=== PATIENT | male | born 1980 | race Caucasian/White ===

== ENCOUNTER 2017-06-23 02:52 | Emergency (ER) | payer BC, OTHER ==
[~2017-06-23] VITALS: Ht 180.3 cm; Wt 94.6 kg
[2017-06-23 02:59] VITALS: Ht 180.3 cm; Wt 94.6 kg
[2017-06-23] MEDS ORDERED: LIDOCAINE HCL 2% VISC SOLN 20 ML UDC PO STA (03:17)
[2017-06-23] MEDS ORDERED: ALUMINUM/MAGNESIUM SUSP 30 ML UDC PO STA (03:17)
[2017-06-23 03:53] LABS: BASO % 0.1 %; BASO ABS # 0.01 K/uL (0-0.2); COMPLETE YES; HEMATOCRIT 45.2 % (42-52); IG% 0.3 %; LYMPH % 13.4 %; LYMPH ABS # 1.26 K/uL (1.2-3.4); MEAN CELL VOLUME 82.9 fL (80-100); MEAN PLATELET VOLUME 11.7 fL (7.4-10.4); MONO % 6.2 %; PLATELET COUNT 210 K/uL (130-400); RED BLOOD COUNT 5.45 M/uL (4.7-6.1); WHITE BLOOD COUNT 9.41 K/uL (4.8-10.8)
[2017-06-23 04:41] LABS: ALKALINE PHOSPHATASE 89 U/L (45-117); ALT/SGPT 40 U/L (12-78); AST/SGOT 23 U/L (15-37); BLOOD UREA NITROGEN 13 mg/dl (7-18); BUN/CREATININE RATIO 13.1 (10-20); CALCIUM 8.8 mg/dl (8.5-10.1); CARBON DIOXIDE 25 mmol/L (21-32); CHLORIDE 107 mmol/L (98-107); GLUCOSE 99 mg/dl (70-99); SODIUM 140 mmol/L (136-145)
--- NOTE | 2017-06-23 07:08 | DIAGNOSTIC IMAGING REPORT ---
ULTRASOUND RIGHT UPPER QUADRANT ABDOMEN CLINICAL HISTORY: Right upper quadrant abdominal pain. COMPARISON STUDY: No priors. TECHNIQUE: Real-time, grayscale, and color flow sonography of the right upper quadrant of the abdomen was performed. Images are reviewed in the transverse and longitudinal planes. FINDINGS: Liver: The liver is normal in size and heterogeneous and echotexture. There is no intrahepatic biliary ductal dilatation. The main portal vein is patent. Gallbladder: The gallbladder is mildly distended. There are gallstones and biliary sludge. The gallbladder wall appears thickened and edematous, measuring up to 5 mm. No pericholecystic fluid is seen. A sonographic Jade's sign is reportedly present. The common bile duct measures up to 0.5 cm in diameter. Pancreas: Not well visualized due to overlying bowel gas. Right kidney: Survey images of the right kidney demonstrate normal size and echotexture. There is no hydronephrosis. Ascites: None. IMPRESSION: 1. Cholelithiasis and biliary sludge with sonographic evidence of acute cholecystitis. Hepatobiliary scan could be considered for confirmation if clinically warranted. Surgical consultation is advised. 2. No intra or extrahepatic biliary ductal dilatation is identified. Electronically signed by: Jevon Zapata M.D. 06/23/2017 7:07 AM Dictated Date/Time: 06/23/2017 7:05 AM
--- NOTE | 2017-06-23 07:30 | DIAGNOSTIC IMAGING REPORT ---
CHEST ONE VIEW PORTABLE HISTORY: Atypical CHEST PAIN COMPARISON: None. FINDINGS: The lungs are clear. Cardiac silhouette is normal in size. No pleural effusions. No pneumothorax. IMPRESSION: No acute process. Electronically signed by: Israel Mack M.D. 06/23/2017 7:28 AM Dictated Date/Time: 06/23/2017 7:27 AM
--- NOTE | 2017-06-23 08:05 | Surgery Consultation ---
Consultation Date of Consultation: Jun 23, 2017. Attending Physician: History of Present Illness The patient is a 36 year old male who presents to the Emergency Room with complaints of intermittent epigastric right upper quadrant pain for the past 3 days described as aching, ranging in severity 7 out of 10. Patient states after eating pizza on Tuesday the pain developed and resolved after a few hours. This happened again last night and tonight. Patient states he eats a lot of fatty foods. No history of similar symptoms in the past. Patient tried Pepto- Bismol with no relief of symptoms. Patient denies chest pain, dyspnea, fever, chills, back pain, urinary symptoms, black or blood in the stool. No family history of heart disease. No prior heart disease himself. I saw pt at ER, pt is still have RUQ pain, some nausea, no vomiting, Past Medical/Surgical History Medical Problems: (1) Biliary colic Status: Acute Social History Smoking Status: Never Smoker Smokeless Tobacco Use: No Alcohol Use: occasionally Drug Use: none Allergies Coded Allergies: Erythromycin (Unverified Allergy, Severe, 06/23/17) PT HOSPITALIZED AFTER LAST EXPOSURE Home Medications No Active Prescriptions or Reported Meds Review of Systems Constitutional: No fever, No chills, No sweats, No weight loss, No weakness, No fatigue, No problem reported Eyes: No worsening of vision, No eye pain, No redness, No discharge, No diplopia, No problem reported ENT: No hearing loss, No unusual epistaxis, No nasal symptoms, No sore throat, No tinnitus, No dental problems, No trouble swallowing, No problem reported Respiratory: No cough, No sputum, No wheezing, No shortness of breath, No dyspnea on exertion, No dyspnea at rest, No hemoptysis, No problem reported Cardiovascular: No chest pain, No orthopnea, No PND, No edema, No claudication , No palpitations, No problem reported Abdomen: + pain, + nausea Musculoskeletal: No joint pain, No muscle pain, No swelling, No calf pain, No problem reported Genitourinary - Male: No hematuria, No dysuria, No urinary frequency, No urinary urgency, No urinary hesitancy, No urinary retention, No urinary incontinence, No penile discharge, No lesions, No impotence, No problem reported Neurologic: No memory loss, No paralysis, No weakness, No numbness/tingling, No vertigo, No balance problems, No problem reported Psychiatric: No depression symptoms, No anhedonism, No anxiety, No insomnia, No substance abuse, No problem reported Endocrine: No fatigue, No excessive thirst, No excessive urination, No problem reported Hematologic / Lymphatic: No abnormal bleeding/bruising, No clotting problems, No swollen lymph nodes, No night sweats, No problem reported Physical Exam Date Time Temp Pulse Resp B/P (MAP) Pulse Ox O2 Delivery O2 Flow Rate FiO2 06/23/17 06:46 72 20 138/75 97 Room Air 06/23/17 05:05 74 20 139/91 94 Room Air 06/23/17 03:29 Room Air 06/23/17 02:59 37.0 84 18 155/103 96 Room Air General Appearance: WD/WN, + mild distress Head: normocephalic Eyes: normal inspection ENT: normal ENT inspection Neck: supple, no JVD Respiratory/Chest: chest non-tender, lungs clear Cardiovascular: regular rate, rhythm, no edema, no gallop, no JVD, no murmur Abdomen/GI: soft, no organomegaly, no pulsatile mass, + tenderness (AT RUQ) Extremities/Musculoskelatal: normal inspection, no calf tenderness, normal capillary refill Neurologic/Psych: no motor/sensory deficits, alert, normal mood/affect Skin: normal color, warm/dry, no rash Laboratory Results Last 24 Hours Test 06/23/17 03:40 White Blood Count 9.41 K/uL Red Blood Count 5.45 M/uL Hemoglobin 15.8 g/dL Hematocrit 45.2 % Mean Corpuscular Volume 82.9 fL Mean Corpuscular Hemoglobin 29.0 pg Mean Corpuscular Hemoglobin Concent 35.0 g/dl Platelet Count 210 K/uL Mean Platelet Volume 11.7 fL Neutrophils (%) (Auto) 79.0 % Lymphocytes (%) (Auto) 13.4 % Monocytes (%) (Auto) 6.2 % Eosinophils (%) (Auto) 1.0 % Basophils (%) (Auto) 0.1 % Neutrophils # (Auto) 7.44 K/uL Lymphocytes # (Auto) 1.26 K/uL Monocytes # (Auto) 0.58 K/uL Eosinophils # (Auto) 0.09 K/uL Basophils # (Auto) 0.01 K/uL RDW Standard Deviation 40.3 fL RDW Coefficient of Variation 13.5 % Immature Granulocyte % (Auto) 0.3 % Immature Granulocyte # (Auto) 0.03 K/uL Sodium Level 140 mmol/L Potassium Level 4.0 mmol/L Chloride Level 107 mmol/L Carbon Dioxide Level 25 mmol/L Anion Gap 8.0 mmol/L Blood Urea Nitrogen 13 mg/dl Creatinine 1.00 mg/dl Est Creatinine Clear Calc Drug Dose 118.7 ml/min Estimated GFR () 110.9 Estimated GFR (Non- 95.7 BUN/Creatinine Ratio 13.1 Random Glucose 99 mg/dl Calcium Level 8.8 mg/dl Total Bilirubin 1.2 mg/dl Direct Bilirubin mg/dl Aspartate Amino Transf (AST/SGOT) 23 U/L Alanine Aminotransferase (ALT/SGPT) 40 U/L Alkaline Phosphatase 89 U/L Troponin I < 0.015 ng/ml Total Protein 7.8 gm/dl Albumin 4.0 gm/dl Lipase 147 U/L Chemistry Specimen Hemolysis Assessment & Plan U/S-IMPRESSION: 1. Cholelithiasis and biliary sludge with sonographic evidence of acute cholecystitis. Hepatobiliary scan could be considered for confirmation if clinically warranted. Surgical consultation is advised. 2. No intra or extrahepatic biliary ductal dilatation is identified. Assement: pt is a 36 zander old male who presents to ER for 4 days RUQ pain, U/S cholelithiasis. acute cholecystitis IMP: cholelithiasis. acute cholecystitis Plan: I recommend to do laparoscopic cholecystectomy, possible open or cholangiogram, D/W benefits, risks and alternatives of the procedure, the risks- infection, bleeding, injury CBD, bowel, may need ERCP, incisional hernia, pt understood, he agrees with the plan, I answered all questions,
[2017-06-23 08:15] VITALS: O2SAT 97
[2017-06-23] MEDS ORDERED: GLYCOPYRROLATE INJ 0.2 MG/ML VIAL ONE ×2 (08:22→09:42)
[2017-06-23] MEDS ORDERED: LIDOCAINE HCL 2% 2 ML VIAL (20MG/ML) ONE (08:22)
[2017-06-23] MEDS ORDERED: ONDANSETRON INJ 2 MG/ML 2 ML VIAL ONE (08:22)
[2017-06-23] MEDS ORDERED: DEXAMETHASONE SOD INJ 4 MG/ML VIAL ONE (08:22)
[2017-06-23] MEDS ORDERED: PROPOFOL IV EMULSION 10 MG/ML 20 ML VIAL IV ONE (08:22)
[2017-06-23] MEDS ORDERED: NEOSTIGMINE METHYLSULFATE 5 MG/5 ML SYR ONE (08:22)
[2017-06-23] MEDS ORDERED: FENTANYL CITRATE INJ 50 MCG/1 ML 2 ML VIAL ONE (08:23)
[2017-06-23] MEDS ORDERED: MIDAZOLAM HCL 1 MG/ML 2ML VIAL ONE (08:23)
--- NOTE | 2017-06-23 08:27 | History & Physical Bridge Note ---
H&P Re-Evaluation Bridge Note: I have examined the patient, reviewed the History & Physical and in the interval since the performance of the History & Physical I have noted the following changes of clinical significance: No changes noted
[2017-06-23] MEDS ORDERED: CEFAZOLIN IV 2,000 MG/60 ML D5W IV ONE (08:29)
[2017-06-23] MEDS ORDERED: FENTANYL CITRATE INJ 50 MCG/1 ML 2 ML VIAL IV PRN (08:30)
[2017-06-23] MEDS ORDERED: NALOXONE HCL 0.4 MG/1 ML VIAL/CARP IV PRN (08:30)
[2017-06-23] MEDS ORDERED: ONDANSETRON INJ 2 MG/ML 2 ML VIAL IV PRN ×2 (08:30→10:45)
[2017-06-23] MEDS ORDERED: LABETALOL HCL IV 5 MG/ML 20ML IV PRN (08:30)
[2017-06-23] MEDS ORDERED: FLUMAZENIL 0.1 MG/1 ML 10 ML VIAL IV PRN (08:30)
[2017-06-23] MEDS ORDERED: EpHEDrine SULFATE INJ 50 MG/ML AMP IV PRN (08:30)
[2017-06-23] MEDS ORDERED: PHENYLEPHRINE 100MCG/ML 5ML SYR IV PRN (08:30)
[2017-06-23] MEDS ORDERED: MEPERIDINE HCL 25 MG/ML CARP IV PRN (08:30)
[2017-06-23] MEDS ORDERED: HYDROmorphone INJ 2 MG/ML SYR/VIAL IV PRN (08:30)
[2017-06-23] MEDS ORDERED: ATROPINE SULFATE 0.1 MG/ML 5ML SYR IV PRN (08:30)
[2017-06-23] MEDS ORDERED: HYDROmorphone INJ 2 MG/ML SYR/VIAL ONE (08:35)
[2017-06-23] MEDS ORDERED: SODIUM CHLORIDE 0.9% INJ 10 ML VIAL ONE (08:35)
[2017-06-23] MEDS ORDERED: LIDOCAINE HCL 1% 20 ML VIAL ONE (08:44)
[2017-06-23] MEDS ORDERED: BACITRACIN OINT 15 GM TUBE ONE (08:45)
[2017-06-23] MEDS ORDERED: BUPIVACAINE 0.5 % 5 MG/1 ML MPF 30ML VIAL ONE (08:45)
[2017-06-23] MEDS ORDERED: LARYING-O-JET KIT (LTA) ONE ×2 (09:42)
[2017-06-23] MEDS ORDERED: KETOROLAC TROMETHAMINE 30 MG/ML VIAL ONE (10:19)
[2017-06-23] MEDS ORDERED: ROCURONIUM BROMIDE 10 MG/ML 5 ML VIAL IV ONE (10:20)
[2017-06-23] MEDS ORDERED: D5W AND 1/2NSS + 20MEQ KCL 1,000 ML IV SCH (10:33)
--- NOTE | 2017-06-23 10:33 | [facility] Post Operative Brief Note ---
Immediate Operative Summary Operative Date Jun 23, 2017. Pre-Operative Diagnosis Cholelithiasis, acute cholecystitis Post-Operative Diagnosis Cholelithiasis, acute cholecystitis Procedure(s) Performed Laparoscopic Cholecystectomy Surgeon Dr. Perdomo Cigarette Stamper Surgeon(s) surgical dressing maker Estimated Blood Loss 10 cc Findings acute cholecystitis Fluids (cc crystalloids) 1400ml Specimens A: gallbladder and contents Drains none Anesthesia general Complication(s) None Disposition Recovery Room / PACU
--- NOTE | 2017-06-23 10:37 | Discharge Instructions ---
Discharge Instructions Date of Service Jun 23, 2017. Visit Reason for Visit: Severe Stomach Pain Discharge Discharge Diagnosis / Problem: S/P laparoscopic cholecystectomy Discharge Goals Goal(s): Decrease discomfort, Improve function Activity Recommendations Activity Limitations: per Instructions/Follow-up section Lifting Limitations: no more than 25 pounds Exercise/Sports Limitations: rest today May Resume Sexual Activity: when tolerated Shower/Bathe: may shower/bathe in 3 days Driving or Machine Use: resume 3 days after discharge Anesthesia . Post Anesthesia Instructions: If you have had General Anesthesia or IV Sedation: * Do not drive today. * Resume driving when surgeon permits. * Do not make important decisions or sign legal documents today. * Call surgeon for: 1. Temperature elevations greater than 101 degrees F. 2. Uncontrollable pain. 3. Excessive bleeding. 4. Persistent nausea and vomiting. 5. Medication intolerance (nausea, vomiting or rash). * For nausea and vomiting use only clear liquids such as: tea, soda, bouillon until nausea subsides, then gradually increase diet as tolerated. * If you have any concerns or questions, call your surgeon's office. If physician is unavailable and it is an emergency, call 911 or go to the nearest emergency room. . Instructions / Follow-Up Instructions / Follow-Up keep the dressing on for 4 days, he can take a shower on , no driving while taking pain medicine, follow up 1 week, Diet Recommendations Recommended Home Diet: resume previous diet Procedures Procedures Performed: Laparoscopic Cholecystectomy Pending Studies Studies pending at discharge: no Work Instructions Return To Work: 2 days Medical Emergencies . Who to Call and When: Medical Emergencies: If at any time you feel your situation is an emergency, please call 911 immediately. . Non-Emergent Contact Non-Emergency issues call your: Surgeon Call Non-Emergent contact if: you have a fever, temperature is above 100.5, your pain is not controlled, your pain is worsening, wound has increased drainage, wound has increased redness . . "Provider Documentation" section prepared by Vy Perdomo. . [place] Drug Monitoring Program Search Results: no issues identified
[2017-06-23] MEDS ORDERED: OXYC-57 PO (10:39)
[2017-06-23] MEDS ORDERED: OXYCODONE/ACETAMINOPHEN 5-325 TAB PO PRN (10:45)
[2017-06-23] MEDS ORDERED: HYDROmorphone INJ 1 MG/ML SYR IV PRN (10:45)
[2017-06-23] MEDS ORDERED: ACETAMINOPHEN 325 MG TAB PO PRN (10:45)
--- NOTE | 2017-06-23 11:23 | OPERATIVE REPORT ---
DATE OF OPERATION: 06/23/2017 PREOPERATIVE DIAGNOSIS: Acute cholecystitis, cholelithiasis. POSTOPERATIVE DIAGNOSIS: Same. PROCEDURE: Laparoscopic cholecystectomy. SURGEON: Dr. Vy Perdomo. ANESTHESIA: General. ESTIMATED BLOOD LOSS: About 10 mL. IV FLUIDS: 1400 mL. FINDINGS: Acute cholecystitis. COMPLICATIONS: None. INDICATIONS FOR THE PROCEDURE: This is a 36-year-old gentleman who presented to the ED with right upper quadrant pain. The patient had ultrasound, diagnosis acute cholecystitis with cholelithiasis. The patient will be required to do laparoscopic cholecystectomy, possible open, possible cholangiogram. I did talk to the patient about the benefit and risk, alternate procedure. I indicated the risks may include but not limited such as bleeding, infection, injury to common bile duct, injury to bowel, may need ERCP, incisional hernia. The patient understands. He signed informed consent and I answered all questions. DETAILS OF PROCEDURE: We brought the patient to the OR, put the patient in the supine position. The patient received SCD on bilateral legs to prevent DVT. Also, patient received 2 grams Ancef IV for prophylactic antibiotic. The patient received general anesthesia without difficulty. The abdomen was prepped and draped in routine sterile fashion. After a timeout, I injected local anesthesia by using 1% lidocaine mixed with 0.5% Marcaine just above the umbilical. Then I made a small incision just above umbilical, opened fascia and opened peritoneum under direct vision. I put a Jamila trocar in, connected to CO2 to create pneumoperitoneum. Flow rate is 6 liter per minute. Pressure not more than 14 mmHg. Once we got a nice pneumoperitoneum, we put a 10 mm camera in looked around the abdomen showing no more findings on the stomach, small bowel, large bowel, liver; however, there was some omentum covering the gallbladder. The gallbladder showed significant gallbladder wall thickening with edema and showed acute cholecystitis. Then, we put another 3.5 mm trocar on the right upper quadrant. Once all trocars in we put grasper in to hold the gallbladder on the base of the gallbladder, put direction to the diaphragm and then I put another grasper in to hold the pouch the gallbladder, put latter to expose the triangle of Calot. The cystic duct was identified and mobilized. I put two 5 mm metal clips on the proximal cystic duct, one on the distal cystic duct then I used scissor transection the cystic duct. Cystic artery was identified and mobilized. I put two 5 mm metal clips on the proximal cystic artery, 1 on the distal cystic artery. Then I used the scissor transecting cystic artery. We checked, no active bleeding, no bile leak. Then I used Bovie to take down the gallbladder from the liver bed without difficulty. Then we removed the gallbladder through the catch bag. Then we reinserted Jamila trocar in, connected to CO2 to create pneumoperitoneum, again looked around the abdomen shows no active bleeding and no bile leak from the liver bed. Then we removed all trocars under direct vision. No active bleeding from trocar sites and no bowel injuries in the abdomen. Then the pneumoperitoneum was released. Then I used a #1 Vicryl closed the umbilical incision, fascial layer by using figure of eight x2, closed subcutaneous layer by using 2-0 Vicryl, closed skin by using 4-0 Vicryl continuous running. Another 3.5 mm trocar site closed skin by using 4-0 Vicryl only. Then, we put the dressing on. The patient tolerated the procedure well. All the instrument, needle and sponge count correct x2 at the end of the case. After the procedure, the patient transferred to recovery room in stable condition. The specimen sent to pathology. I attest to the content of the Intraoperative Record and any orders documented therein. Any exceptions are noted below. TIESHA
--- NOTE | 2017-06-23 11:27 | Anesthesiology Progress Note ---
Anesthesia Post Op Note Date & Time Jun 23, 2017 at 11:27 Vital Signs Pain Intensity: 0 Vital Signs Past 12 Hours Date Time Temp Pulse Resp B/P (MAP) Pulse Ox O2 Delivery O2 Flow Rate FiO2 06/23/17 11:16 87 22 06/23/17 11:16 88 22 97 06/23/17 11:15 139/79 06/23/17 11:13 140/81 06/23/17 11:11 86 19 92 06/23/17 11:11 85 19 06/23/17 11:10 169/99 06/23/17 11:06 74 18 92 06/23/17 11:06 73 18 06/23/17 11:05 132/80 06/23/17 11:01 73 14 06/23/17 11:01 72 14 93 06/23/17 11:00 153/87 06/23/17 10:56 62 13 06/23/17 10:56 62 13 97 06/23/17 10:55 153/87 06/23/17 10:51 67 13 100 06/23/17 10:51 66 13 06/23/17 10:50 139/79 06/23/17 10:46 67 14 99 06/23/17 10:46 67 14 06/23/17 10:45 133/83 06/23/17 10:41 79 16 06/23/17 10:41 81 16 99 06/23/17 10:40 148/80 06/23/17 10:36 80 06/23/17 10:36 36.3 60 14 141/82 99 Oxymask 10 06/23/17 10:36 80 141/82 100 06/23/17 08:15 37.0 72 20 138/75 97 06/23/17 06:46 72 20 138/75 97 Room Air 06/23/17 05:05 74 20 139/91 94 Room Air 06/23/17 03:29 Room Air 06/23/17 02:59 37.0 84 18 155/103 96 Room Air Notes Mental Status: alert / awake / arousable, participated in evaluation Pt Amnestic to Procedure: Yes Nausea / Vomiting: adequately controlled, improving with treatment Pain: adequately controlled Airway Patency, RR, SpO2: stable & adequate BP & HR: stable & adequate Hydration State: stable & adequate Anesthetic Complications: no major complications apparent
[2017-06-23 11:40] VITALS: BP 151/72; PULSE 96; TEMP 36.6; O2SAT 100
[2017-06-23 12:10] VITALS: BP 134/70; PULSE 67; O2SAT 100
[2017-06-23 12:45] VITALS: BP 134/83; PULSE 81; O2SAT 98
[2017-06-23 13:32] VITALS: BP 121/73; PULSE 94; O2SAT 99
--- NOTE | 2017-06-24 03:19 | EMERGENCY ROOM VISIT NOTE ---
History First contact with patient: 03:09 Chief Complaint: ABDOMINAL PAIN Stated Complaint: SEVERE STOMACH PAIN Nursing Triage Summary: off and on cramping pain in stomach over last few nights. N/V/D. tried Pepto around 2300 with no relief History of Present Illness The patient is a 36 year old male who presents to the Emergency Room with complaints of intermittent epigastric right upper quadrant pain for the past 3 days described as aching, ranging in severity 7 out of 10. Patient states after eating pizza on Tuesday the pain developed and resolved after a few hours. This happened again last night and tonight. Patient states he eats a lot of fatty foods. No history of similar symptoms in the past. Patient tried Pepto- Bismol with no relief of symptoms. Patient denies chest pain, dyspnea, fever, chills, back pain, urinary symptoms, black or blood in the stool. No family history of heart disease. No prior heart disease himself. Review of Systems See HPI for pertinent positives & negatives. A total of 10 systems reviewed and were otherwise negative. Past Medical/Surgical History Back surgery Social History Smoking Status: Never Smoker Alcohol Use: occasionally Drug Use: none Marital Status: Housing Status: lives with family Occupation Status: employed Current/Historical Medications Scheduled PRN Oxycodone/Acetaminophen 5MG/325MG (Percocet 5MG/325MG), 1 TABLET PO Q6H PRN for Pain Allergies Coded Allergies: Erythromycin (Unverified Allergy, Severe, 06/23/17) PT HOSPITALIZED AFTER LAST EXPOSURE Physical Exam Vital Signs Date Time Temp Pulse Resp B/P (MAP) Pulse Ox O2 Delivery O2 Flow Rate FiO2 06/23/17 13:32 94 16 121/73 99 Room Air 06/23/17 12:45 81 20 134/83 98 Room Air 06/23/17 12:10 67 16 134/70 100 Nasal Cannula 1 06/23/17 11:40 36.6 96 18 151/72 100 Nasal Cannula 2 06/23/17 11:32 36.1 06/23/17 11:26 72 21 06/23/17 11:26 71 21 98 06/23/17 11:25 130/75 06/23/17 11:22 91 15 92 06/23/17 11:22 88 15 06/23/17 11:20 130/75 06/23/17 11:17 83 18 06/23/17 11:17 84 18 95 06/23/17 11:16 87 22 06/23/17 11:16 88 22 97 06/23/17 11:15 139/79 06/23/17 11:13 140/81 06/23/17 11:11 86 19 92 06/23/17 11:11 85 19 06/23/17 11:10 169/99 06/23/17 11:06 74 18 92 06/23/17 11:06 73 18 06/23/17 11:05 132/80 06/23/17 11:01 73 14 06/23/17 11:01 72 14 93 06/23/17 11:00 153/87 06/23/17 10:56 62 13 06/23/17 10:56 62 13 97 06/23/17 10:55 153/87 06/23/17 10:51 67 13 100 06/23/17 10:51 66 13 06/23/17 10:50 139/79 06/23/17 10:46 67 14 99 06/23/17 10:46 67 14 06/23/17 10:45 133/83 06/23/17 10:41 79 16 06/23/17 10:41 81 16 99 06/23/17 10:40 148/80 06/23/17 10:36 80 06/23/17 10:36 36.3 60 14 141/82 99 Oxymask 10 06/23/17 10:36 80 141/82 100 06/23/17 08:15 37.0 72 20 138/75 97 06/23/17 06:46 72 20 138/75 97 Room Air 06/23/17 05:05 74 20 139/91 94 Room Air 06/23/17 03:29 Room Air 06/23/17 02:59 37.0 84 18 155/103 96 Room Air Physical Exam VITALS: Vitals are noted on the nurse's note and reviewed by myself. Vital signs hypertensive most likely secondary to pain GENERAL: Pleasant male, in no acute distress, nondiaphoretic, well-developed well-nourished. SKIN: The skin was without rashes, erythema, edema, or bruising. There is no tenting of the skin. Capillary reflex less than 2 seconds. HEAD: Normocephalic atraumatic. EARS: External auditory canals clear, tympanic membranes pearly gardiner without erythema or effusion bilaterally. EYES: Pupils equal round and reactive to light and accommodation. Conjunctivae without injection, sclerae without icterus. Extraocular movements intact. NOSE: Patent, turbinates without inflammation or discharge. MOUTH: Mucous membranes moist. Pharynx without erythema or exudate. Uvula midline. Airway patent. Tongue does not deviate. NECK: Supple without nuchal rigidity. No lymphadenopathy. No thyromegaly. Cervical spine is nontender. No JVD. HEART: Regular rate and rhythm without murmurs gallops or rubs. LUNGS: Clear to auscultation bilaterally without wheezes, rales or rhonchi. No dullness to percussion. No retractions or accessory muscle use. ABDOMEN: Positive bowel sounds x 4. Normal tympanic percussion. Soft, tender to palpation epigastric right upper quadrant, no CVA tenderness, without masses or organomegaly. No guarding or rebound tenderness. MUSCULOSKELETAL: No muscle atrophy, erythema, or edema noted. NEURO: Patient was alert and oriented to person place and time. Normal sensation to light and sharp touch. No focal neurological deficits. Medical Decision & Procedures Laboratory Results 06/23/17 03:40 Red Blood Count 5.45, Mean Corpuscular Volume 82.9, Mean Corpuscular Hemoglobin 29.0, Mean Corpuscular Hemoglobin Concent 35.0, Mean Platelet Volume 11.7, Neutrophils (%) (Auto) 79.0, Lymphocytes (%) (Auto) 13.4, Monocytes (%) (Auto) 6.2, Eosinophils (%) (Auto) 1.0, Basophils (%) (Auto) 0.1, Neutrophils # (Auto) 7.44, Lymphocytes # (Auto) 1.26, Monocytes # (Auto) 0.58, Eosinophils # (Auto) 0.09, Basophils # (Auto) 0.01 06/23/17 03:40 Test 06/23/17 03:40 White Blood Count 9.41 K/uL (4.8-10.8) Red Blood Count 5.45 M/uL (4.7-6.1) Hemoglobin 15.8 g/dL (14.0-18.0) Hematocrit 45.2 % (42-52) Mean Corpuscular Volume 82.9 fL (80-100) Mean Corpuscular Hemoglobin 29.0 pg (25-34) Mean Corpuscular Hemoglobin Concent 35.0 g/dl (32-36) Platelet Count 210 K/uL (130-400) Mean Platelet Volume 11.7 fL (7.4-10.4) Neutrophils (%) (Auto) 79.0 % Lymphocytes (%) (Auto) 13.4 % Monocytes (%) (Auto) 6.2 % Eosinophils (%) (Auto) 1.0 % Basophils (%) (Auto) 0.1 % Neutrophils # (Auto) 7.44 K/uL (1.4-6.5) Lymphocytes # (Auto) 1.26 K/uL (1.2-3.4) Monocytes # (Auto) 0.58 K/uL (0.11-0.59) Eosinophils # (Auto) 0.09 K/uL (0-0.5) Basophils # (Auto) 0.01 K/uL (0-0.2) RDW Standard Deviation 40.3 fL (36.4-46.3) RDW Coefficient of Variation 13.5 % (11.5-14.5) Immature Granulocyte % (Auto) 0.3 % Immature Granulocyte # (Auto) 0.03 K/uL (0.00-0.02) Anion Gap 8.0 mmol/L (3-11) Est Creatinine Clear Calc Drug Dose 118.7 ml/min Estimated GFR () 110.9 Estimated GFR (Non- 95.7 BUN/Creatinine Ratio 13.1 (10-20) Calcium Level 8.8 mg/dl (8.5-10.1) Total Bilirubin 1.2 mg/dl (0.2-1) Direct Bilirubin mg/dl (0-0.2) Aspartate Amino Transf (AST/SGOT) 23 U/L (15-37) Alanine Aminotransferase (ALT/SGPT) 40 U/L (12-78) Alkaline Phosphatase 89 U/L (45-117) Troponin I < 0.015 ng/ml (0-0.045) Total Protein 7.8 gm/dl (6.4-8.2) Albumin 4.0 gm/dl (3.4-5.0) Lipase 147 U/L (73-393) Chemistry Specimen Hemolysis Medications Administered Medications (Trade) Dose Ordered Sig/Khurram Route Start Time Stop Time Status Last Admin Dose Admin Lidocaine HCl (Viscous Lidocaine 2% Soln) 10 ml NOW STAT PO 06/23/17 03:17 06/23/17 03:18 DC 06/23/17 03:44 10 ML Al Hydroxide/Mg Hydroxide (Maalox Susp) 30 ml NOW STAT PO 06/23/17 03:17 06/23/17 03:18 DC 06/23/17 03:44 30 ML Ondansetron HCl (Zofran Inj) 4 mg ONE PRN IV 06/23/17 08:30 06/23/17 11:11 DC 06/23/17 11:11 4 MG Cefazolin Sodium (Ancef 2000mg/60 ml D5W) 2,000 mg STK-MED ONCE IV 06/23/17 08:29 06/23/17 08:30 DC 06/23/17 08:26 2,000 MG Lidocaine HCl (Xylocaine 1% Inj (Local)) 20 ml STK-MED ONCE .ROUTE 06/23/17 08:44 06/23/17 08:45 DC 06/23/17 08:44 5 ML Bacitracin (Bacitracin Oint) 45 appln STK-MED ONCE .ROUTE 06/23/17 08:45 06/23/17 08:46 DC 06/23/17 08:45 45 APPLN Bupivacaine HCl (Marcaine 0.5% MPF Inj) 30 ml STK-MED ONCE .ROUTE 06/23/17 08:45 06/23/17 08:46 DC 06/23/17 08:45 5 ML ED Course Prior records/ancillary studies reviewed. Triage Nursing notes reviewed. Additional history obtained from family. The patient's history was concerning for abdominal pain. Differential diagnosis: Etiologies such as appendicitis, diverticulitis, PUD, biliary pathology, UTI, pancreatitis, obstruction, mesenteric ischemia, aortic pathology, infections, inflammatory bowel disease, renal colic, as well as others were entertained. Physical examination findings: As above. ER treatment provided: GI cocktail On reassessment the patient felt better. Diagnostics interpreted by me: ECG: Normal sinus, normal intervals, no acute ST-T changes. Impression normal sinus rhythm interpreted by myself The labs revealed stable H&H. No leukocytosis Imaging studies: US RUQ: Gallbladder sludge and questionable polyp at the gallbladder fundus. Thickened, edematous gallbladder wall measuring 4.5 mm. Positive sonographic Jade's sign. Findings may represent acute cholecystitis in the appropriate clinical setting. HIDA scan can be considered to further assess if clinically indicated. No biliary dilation. CBD measures 5 mm. Heterogeneous, mildly echogenic liver which may be due to hepatic steatosis. Pancreas not well visualized due to bowel gas. Radiologist: Asia Moncada MD Chest x-ray with no acute consolidation, pneumothorax or free air per my interpretation Consultation: A consultation was placed with the GS, Dr Perdomo. The case was discussed and diagnostics were reviewed. The patient was evaluated in the ER for further treatment. Exam and history seem consistent with acute cholecystitis. Surgery was consulted and will evaluate the patient and take him to the OR for surgery. By the evaluation outlined above emergent etiologies such as appendicitis, diverticulitis, PUD, UTI, pancreatitis, obstruction, mesenteric ischemia, aortic pathology, infections, inflammatory bowel disease, renal colic, as well as others were deemed relatively unlikely. The pt informed about the findings as listed above. All questions were answered and pleased with the treatment. Case reviewed with my attending Medical Decision As above Impression Primary Impression: Acute cholecystitis Departure Information Dispostion Being Evaluated By Surgeon Condition GOOD Prescriptions Oxycodone/Acetaminophen 5MG/325MG (PERCOCET 5MG/325MG) Tab 1 TABLET PO Q6H Y for Pain for 4 Days, #20 TAB Prov: Vy Perdomo MD 06/23/17 Referrals Danita Luu D.O. (PCP) Patient Instructions My [facility] Additional Instructions
[2017-06-24] MEDS ORDERED: CEFAZOLIN IV 2,000 MG/60 ML D5W IV ONE (06:00)
== END 2017-06-23 08:15 | disposition home or self-care (01) ==
LOC: C.EDB 02:53
DX: K81.0 Acute cholecystitis (principal); Z98.890 Other specified postprocedural states; Z88.3 Allergy status to other anti-infective agents